=== PATIENT | male | born 1960 | race Caucasian/White ===

== ENCOUNTER 2016-08-09 22:26 | Emergency (ER) | payer OTHER ==
[~2016-08-09] VITALS: Ht 180.3 cm; Wt 134.0 kg
[~2016-08-09 22:26] MED LIST: ADVAIR 100/501 DISK; ADVAIR 100/501 DISK IH; ADVAIR 500/501 DISK IH; ALLOPURINOL300 MG PO; APRESOLINE25 MG PO; Apresoline PO; Aspirin E.C. PO; CARDIZEM120 MG PO; DESYREL100 MG PO; HYDRALAZINE HCL50 MG PO; HYDROCHLOROTH12.5 M3 PO; HYDROCHLOROTHIA25 MG PO; HYDROCHLOROTHIA50 MG PO; HYDROCODON-ACE1 EAC7 PO; IBUPROFEN600 MG PO; INDOMETHACIN50 MG PO; LOPRESSOR50 MG PO; METOPROLOL SUCC50 MG; METOPROLOL TAR100 MG PO; MICRO-K10 ME1 PO; MOTRIN600 MG PO; NORVASC5 MG PO; PRAVASTATIN SOD40 MG PO; Pravachol PO; ST. JOSEPH ASPI81 MG; TRAMADOL HCL100 MG; TRAMADOL HCL50 MG PO; ULTRAM50 MG PO; [UNRECOGNIZED DRUG - OTHER]; allopurinol; lisinopril
[2016-08-09 23:29] LABS: HEMATOCRIT 39.7 % (38.0-50.0); MCH 31.7 PG (29.0-34.0); MCV 93.2 FL (86-99); MEAN PLAT.VOLUME 10.8 uM^3 (9.0-12.4); PLATELET COUNT 152 K/uL (156-360); RBC DIS.WIDTH-CV 13.1 % (11.8-14.6); RBC DIS.WIDTH-SD 44.6 % (39-53); RED BLOOD COUNT 4.26 M/uL (4.00-5.50); WHITE BLOOD COUNT 12.2 K/uL (4.1-10.2)
[2016-08-09 23:38] LABS: CHLORIDE 106 mEq/L (99-109); POTASSIUM 3.5 mEq/L (3.7-5.4); SODIUM 138 mEq/L (136-147)
[2016-08-09 23:41] LABS: GLUCOSE 126 mg/dL (70-99)
[2016-08-09 23:42] LABS: ANION GAP 11 MEQ/L (2-14); TOTAL BILIRUBIN 0.3 mg/dL (0.0-1.0)
[2016-08-09 23:43] LABS: SERUM ETHYL ALCOHOL < 10 mg/dL
[2016-08-09 23:44] LABS: ALKALINE PHOSPHATASE 54 IU/L (3-129); GFR ESTIMATE (CALCULATED) 47 mL/min/
[2016-08-09 23:45] LABS: UREA NITROGEN (BUN) 20 mg/dL (9-23)
[2016-08-09 23:48] LABS: LIPASE 19 U/L (1.0-51.0)
[2016-08-10 00:50] VITALS: BP 156/76
== END 2016-08-10 00:50 | disposition home or self-care (01) ==
LOC: TRA 22:26
PROVIDERS: Emergency Medicine
DX: S02.2XXA Fracture of nasal bones, initial encounter for closed fracture (principal); S06.9X1A Unspecified intracranial injury with loss of consciousness of 30 minutes or less, initial encounter; Y09 Assault by unspecified means; Y92.009 Unspecified place in unspecified non-institutional (private) residence as the place of occurrence of the external cause; I10 Essential (primary) hypertension; J44.9 Chronic obstructive pulmonary disease, unspecified; J45.909 Unspecified asthma, uncomplicated; Z86.73 Personal history of transient ischemic attack (TIA), and cerebral infarction without residual deficits; M10.9 Gout, unspecified; F17.290 Nicotine dependence, other tobacco product, uncomplicated; R07.9 Chest pain, unspecified
CPT/HCPCS: 70450; 70486; 71020; 80053; 81003; 83690; 85027; 99281; 99284; G0480

== ENCOUNTER 2017-01-24 07:37 | Emergency (ER) | payer OTHER ==
[~2017-01-24] VITALS: Ht 180.3 cm; Wt 135.4 kg
[2017-01-24 09:48] VITALS: BP 150/83
[2017-01-24 11:51] LABS: CRYSTALS NO CRYSTALS SEEN
[2017-01-24 12:22] LABS: APPEARANCE CLEAR-YELLOW; MONONUCLEAR WBC'S 47 %; POLYNUCLEAR WBC'S 53 % (0-25); RED CELL COUNT < 1000 /MM^3 (0-1); SYNOVIAL FLUID EOSINOPHILS 0 % (0-25); WHITE CELL COUNT 883 /MM^3 (0-200.0)
== END 2017-01-24 09:49 | disposition home or self-care (01) ==
LOC: EME 07:37
PROVIDERS: Physician Assistant
PROC: 0S9D3ZZ Drainage of Left Knee Joint, Percutaneous Approach (ICD-10-PCS; principal; 2017-01-24)
DX: M25.462 Effusion, left knee (principal); I10 Essential (primary) hypertension; M10.9 Gout, unspecified; M17.12 Unilateral primary osteoarthritis, left knee
CPT/HCPCS: 89051; 99281; 99284

== ENCOUNTER 2017-07-21 22:32 | Emergency (ER) | payer OTHER ==
[~2017-07-21] VITALS: Ht 180.3 cm; Wt 135.1 kg
[2017-07-21 23:23] LABS: HEMATOCRIT 37.3 % (38.0-50.0); HEMOGLOBIN 13.1 G/DL (12.5-16.6); MCH 33.1 PG (29.0-34.0); MCHC 35.1 G/DL (30.0-36.0); MCV 94.2 FL (86-99); PLATELET COUNT 144 K/uL (156-360); RBC DIS.WIDTH-SD 44.7 % (39-53); RED BLOOD COUNT 3.96 M/uL (4.00-5.50); WHITE BLOOD COUNT 7.5 K/uL (4.1-10.2)
[2017-07-21 23:32] LABS: CHLORIDE 106 mEq/L (99-109); POTASSIUM 3.9 mEq/L (3.7-5.4); SODIUM 138 mEq/L (136-147)
[2017-07-21 23:33] LABS: GLUCOSE 104 mg/dL (70-99)
[2017-07-21 23:37] LABS: CREATININE 1.3 mg/dL (0.6-1.3); GFR ESTIMATE (CALCULATED) > 59 mL/min/ (58.99-99999)
[2017-07-21 23:38] LABS: UREA NITROGEN (BUN) 22 mg/dL (9-23)
[2017-07-21 23:43] LABS: TROP-I INTERPRETATION NEGATIVE; TROPONIN-I 0.02 ng/mL (0.0-0.30)
[2017-07-22] MEDS ORDERED: ATIVAN0.5 MG PO (00:46)
[2017-07-22 00:57] VITALS: BP 173/78
== END 2017-07-22 01:10 | disposition home or self-care (01) ==
LOC: EME 22:32
PROVIDERS: Nurse Practitioner Acute Care
DX: F43.9 Reaction to severe stress, unspecified (principal); F41.9 Anxiety disorder, unspecified; R00.1 Bradycardia, unspecified; I10 Essential (primary) hypertension; J44.9 Chronic obstructive pulmonary disease, unspecified; Z86.73 Personal history of transient ischemic attack (TIA), and cerebral infarction without residual deficits
CPT/HCPCS: 71046; 80048; 84484; 85027; 93005; 99281; 99284